=== PATIENT | female | born 2000 | race Caucasian/White ===

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

== ENCOUNTER 2022-03-22 04:14 | Emergency (ER) | payer OTHER, SELFPAY ==
--- NOTE | ~2022-03-22 | CT_ITS ---
EXAMINATION: CT abdomen pelvis wo con DATE: 03/22/2022 05:57 INDICATION: Lower abdominal pain TECHNIQUE: Computed tomography (CT) of the abdomen and pelvis was performed without intravenous contr ast. The dose-length product (DLP) was 270.52 mGy-cm. Automated exposure control and iterative recons truction technique were employed. COMPARISON: None FINDINGS: The lung bases are clear. The heart size is normal. The gallbladder is surgically absent. W ithin the limitations of noncontrast examination, the liver, spleen, pancreas, and adrenal glands are normal. The kidneys are unremarkable. No pathologically enlarged abdominal or pelvic lymph nodes are identified. There is no free intraperitoneal gas or evidence of bowel obstruction. There is a 4.5 cm cyst of the left adnexa. IMPRESSION: 1. No CT correlate for the patient's symptoms. 2. Probable simple cyst of the left ovary. Consider follow-up pelvic ultrasound. Reviewed, dictated and finalized at location A. IMPRESSION: 1. No CT correlate for the patient's symptoms. 2. Probable simple cyst of the left ovary. Consider follow-up pelvic ultrasound .
--- NOTE | 2022-03-22 04:17 | ED.ABDPAIN ---
HPI - Abdominal Pain General Chief Complaint: Abdominal Pain Stated Complaint: PAIN Time Seen by Provider: 03/22/22 04:16 History of Present Illness HPI narrative: 22-year-old female, smoker marijuana user with ADHD, endometriosis status post exploratory laparotomy on contraception presents to the ER with -- left lower quadrant abdominal pain which has progressed to lower abdominal pain. Patient has chronic abdominal pain. Her Abdominal pain flared up last night. -- Nausea without any diarrhea. -- No fever. MD elicited complaint: abdominal pain Pertinent past history: other ( Endometriosis) Onset (ago): hour(s) ( severe for past 8 hours) Pain Consistency: constant Location: LLQ and suprapubic Severity: severe Pain scale (0-10): 9 Quality: cramping Radiation: none Migration to: no migration Exacerbating factors: nothing Relieving factors: nothing Associated symptoms: nausea Treatments prior to arrival: NSAIDs Related Data Date of Last Menstrual Period: 01/20/22 Patient : No Home Medications Medication Instructions Recorded Confirmed L norgest/E estradiol-E estrad 1 ea PO USEASDIRECTD 03/22/22 03/22/22 0.15 mg-30 mcg (84)/10 mcg(7) tabs,3mos ibuprofen 600 mg tablet 600 mg PO Q6H PRN Pain 03/22/22 03/22/22 Allergies Allergy/AdvReac Type Severity Reaction Status Date / Time ivp dye AdvReac Flushing Uncoded 03/22/22 04:33 Review of Systems Review of Systems: All systems reviewed & are unremarkable except as noted in HPI and below Constitutional: Constitutional: Reports as per HPI and Reports no additional constitutional complaints Eyes: Eyes: Reports as per HPI and Reports no additional eye complaints ENT: Reports system reviewed and no additional complaints, except as documented and Reports as per HPI Cardiovascular: Cardiovascular: Reports as per HPI and Reports no additional cardiovascular complaints Respiratory: Respiratory: Reports as per HPI and Reports no additional respiratory complaints Gastrointestinal: Gastrointestinal: Reports as per HPI and Reports no additional gastrointestinal complaints Genitourinary: Genitourinary: Reports no additional female genitourinary complaints and Reports as per HPI Musculoskeletal: Musculoskeletal: Reports no additional musculoskeletal complaints and Reports as per HPI Integumentary/Breasts: Skin/Breast: Reports system reviewed and no additional complaints, except as docu and Reports as per HPI Neurologic: Reports system reviewed and no additional complaints, except as documented and Reports as per HPI Psychiatric: Psychiatric: Reports no additional psychiatric complaints and Reports as per HPI Endocrine: Endocrine: Reports no additional endocrine complaints and Reports as per HPI Hematologic/Lymphatic: Hematologic/Lymphatic: Reports no additional hematologic/lymphatic complaints and Reports as per HPI Allergic/Immunologic: Allergic/Immunologic: Reports no additional allergic/immunologic complaints and Reports as per HPI PMFSH Past Medical History Medical History ADHD Endometriosis Irregular menses Near syncope Surgical History Surgical History H/O exploratory laparotomy H/O foot surgery Social History Social History (Updated 07/03/21 @ 22:29 by Michelle Stockton MD) Smoking status: Current every day smoker Alcohol intake: never Substance use: current Substance use type: marijuana Other substance usage details: uses MJ 2-3 times a day Exam Const: General: healthy appearing and ill appearing Orientation/consciousness: patient oriented x3 Limitations: no limitations HENMT: Head: normal to inspection Ears: external ears normal General nose exam: Normal external nose present Face and sinus: normal facial exam Mouth: Yes Normal oral and palatal mucosa present Eyes: Conjunctivae: conjunctivae normal a
[2022-03-22 04:24] VITALS: BP 140/93; PULSE 108; RESP 20; TEMP 36.6; O2SAT 99
[2022-03-22 04:30] VITALS: BP 111/75; PULSE 89; RESP 18; O2SAT 96
[2022-03-22] MEDS: ONDANSETRON INJ 4 MG/2 ML VIAL IV PUSH (04:57)
[2022-03-22] MEDS: LACTATED RINGERS 1,000 ML 999 ML IV CONT (04:57)
[2022-03-22] MEDS: HYDROmorphone HCL INJ (*CRX) 2 MG/ML VIAL 0.5 MG IV PUSH (04:58)
[2022-03-22 05:03] LABS: Basophils Percent Auto 1.1 % (0.0-1.0); Eosinophils Percent Auto 2.2 % (1.0-6.0); Hematocrit 39.3 % (35.0-49.0); Hemoglobin 13.6 g/dL (12.0-15.0); Immature Granulocyte Absolute 0.02 K/mm3 (0.00-0.00); Immature Granulocyte Percent A 0.2 % (0.0-0.0); Lymphocytes Absolute Auto 4.31 K/mm3 (1.10-4.50); Lymphocytes Percent Auto 47.2 % (18.0-42.0); Mean Corpuscular HGB Conc 34.6 g/dL (32.0-36.0); Mean Corpuscular Hemoglobin 31.1 pg (27.0-31.0); Mean Corpuscular Volume 89.7 fL (78.0-102.0); Monocytes Absolute Auto 0.85 K/mm3 (0.10-0.90); Monocytes Percent Auto 9.3 % (2.0-11.0); Neutrophils Absolute Auto 3.7 K/mm3 (1.7-7.2); Platelet Count Result 227 K/mm3 (150-420); Red Blood Count 4.38 M/mm3 (4.20-5.40); Red Cell Distribution Width 11.9 % (11.6-14.4); White Blood Count 9.1 K/mm3 (4.8-10.8)
[2022-03-22 05:05] LABS: Add Urine Microscopic? NO; Appearance Urine Clear (Clear); Bilirubin Urine Negative (Negative); Blood Urine Negative (Negative); Color Urine Light Yellow (Yellow); Glucose Urine UA Negative (Negative); Ketones Urine Negative (Negative); Leukocyte Esterase Ur Negative (Negative); Nitrate Urine Negative (Negative); Protein Urine Negative (Negative); Urobilinogen Urine 0.2 mg/dL (0.2-1.0); pH Urine 7.5 (5.0-8.0)
[2022-03-22 05:07] VITALS: BP 112/68; PULSE 78; RESP 17; O2SAT 99
[2022-03-22 05:09] LABS: Pregnancy On Board Control Positive; Urine Pregnancy Test Negative
[2022-03-22 05:24] LABS: Lactic Acid Reflex 1.6 mmol/L (0.4-2.0)
[2022-03-22 05:31] LABS: Alanine Aminotransferase 20 U/L (14-59); Albumin Level 3.6 g/dL (3.4-5.0); Alkaline Phosphatase 87 U/L (46-116); Anion Gap 10 mmol/L (8-16); Aspartate Amino Transferase 11 U/L (15-37); Bilirubin,Total 0.2 mg/dL (0.00-1.00); Blood Urea Nitrogen 9 mg/dL (7-18); Calcium 8.7 mg/dL (8.5-10.1); Carbon Dioxide 23 mmol/L (21-32); Chloride 107 mmol/L (98-108); Estimated CRCL calculation 77 ml/min; Estimated Glomerular Filt Rate > 60; Glucose 98 mg/dL (70-99); Lipase 100 U/L (73-393); Osmolality Calculated 288 mOsm/kg (285-295); Potassium 3.7 mmol/L (3.5-5.1); Sodium 140 mmol/L (136-145); Total Protein 7.2 g/dL (6.4-8.2)
[2022-03-22 05:58] VITALS: BP 107/64; PULSE 114; RESP 16; O2SAT 98
[2022-03-22 07:11] VITALS: BP 107/58; PULSE 74; RESP 16; TEMP 36.3; O2SAT 100
== END 2022-03-22 07:16 | disposition home or self-care (01) ==
PROVIDERS: Emergency Provider Internal Medicine Critical Care Medicine; PCP Family Medicine
DX: R10.9 Unspecified abdominal pain (principal)
CPT/HCPCS: 36415; 74176; 80053; 81003; 81025; 83605; 83690; 85025; 85610; 96361; 96374; 96375; 99284; J1170; J2405; J7120

== ENCOUNTER 2022-03-27 19:13 | Emergency (ER) | payer OTHER, SELFPAY ==
[2022-03-27 19:31] VITALS: BP 121/74; PULSE 110; RESP 16; TEMP 36.6; O2SAT 99
--- NOTE | 2022-03-27 20:02 | ED.URI ---
HPI - URI/Sore Throat General Chief Complaint: Upper Respiratory Infection Stated Complaint: body aches, congestion, cough,fever Source: patient Mode of arrival: ambulatory Limitations: no limitations History of Present Illness HPI Narrative: this is a 22-year-old female that presents with a 3 day history of body aches low-grade fevers nonproductive cough no shortness of breath no nausea vomiting no abdominal pain no dysuria no flank pain, patient is not having any shortness of breath or chest pain has been having low-grade fevers for last 2 to 3 days. MD elicited complaint: fever, nasal congestion and other ( body ache) Onset (ago): day(s) Consistency: constant Severity: mild Description of mucous: clear Able to tolerate fluids by mouth: Yes Exacerbating factors: nothing Related Data Home Medications Medication Instructions Recorded Confirmed L norgest/E estradiol-E estrad 1 ea PO USEASDIRECTD 03/22/22 03/27/22 0.15 mg-30 mcg (84)/10 mcg(7) tabs,3mos Allergies Allergy/AdvReac Type Severity Reaction Status Date / Time ivp dye AdvReac Flushing Uncoded 03/27/22 19:29 Review of Systems Review of Systems: All systems reviewed & are unremarkable except as noted in HPI and below PMFSH Past Medical History Medical History ADHD Endometriosis Irregular menses Near syncope Surgical History Surgical History H/O exploratory laparotomy H/O foot surgery Social History Social History Smoking status: Current every day smoker Alcohol intake: never Substance use: current Substance use type: marijuana Other substance usage details: uses MJ 2-3 times a day Exam Const: General: healthy appearing HENMT: Head: normal to inspection Face and sinus: normal facial exam Eyes: Conjunctivae: conjunctivae normal Pupils: Equal, round and reactive pupils present Neck: Neck: normal visual inspection Chest: Chest palpation & inspection: normal inspection of the chest Resp: Effort & Inspection: normal respiratory effort Auscultation: clear to auscultation bilaterally Cardio: Rate: regular rate Rhythm: regular rhythm GI: GI Palp: Yes Soft to palpation : General: Yes bladder normal to palpation Back/Spine/Pelvis: Back: no CVA tenderness Skin: General skin exam: normal color Rashes: no rashes Wounds: no wounds Neuro: General: patient oriented x3 Cranial nerves: Yes Nystagmus not present Speech: normal speech Gait exam (Neuro): Normal gait present Extrem: General: normal to inspection Psych: Mental Status: mental status grossly normal Affect: normal affect Attitude: cooperative Course Course Emergency Course: Patient received IV fluids, g of Tylenol and patient had an influenza and COVID testing. Vital Signs Vital signs: Vital Signs Temperature 36.6 C 03/27/22 19:31 Pulse Rate 110 H 03/27/22 19:31 Respiratory Rate 16 03/27/22 19:31 Blood Pressure 121/74 03/27/22 19:31 Pulse Oximetry 99 03/27/22 19:31 Oxygen Delivery Room Air 03/27/22 19:31 Temperature 36.6 C 03/27/22 19:31 Pulse Rate 110 H 03/27/22 19:31 Respiratory Rate 16 03/27/22 19:31 Blood Pressure 121/74 03/27/22 19:31 Pulse Oximetry 99 03/27/22 19:31 Oxygen Delivery Room Air 03/27/22 19:31 MDM - URI/Sore Throat Lab Data Labs: Lab Results 03/27/22 Range/Units 19:29 Influenza A (RT-PCR) Pending Influenza B (RT-PCR) Pending SARS-CoV-2 RNA (RT-PCR) Pending Critical Care Time Critical Care Time Critical Care Time: No Discharge Plan Discharge Clinical Impression: COVID-19 Patient Disposition: Home, Self-Care Condition: Stable Instructions: Antibiotic Form, COVID-19 (Coronavirus Disease 2019) (ED) Additional Instructions: Take medicine as prescribed and follow-up pr
[2022-03-27 20:07] LABS: Influenza A QL RT-PCR Negative (Negative); Influenza B QL RT-PCR Negative (Negative); SARS-CoV-2 RNA PCR Positive (Negative)
[2022-03-27] MEDS: ACETAMINOPHEN 500 MG TABLET 1000 MG PO (20:14)
[2022-03-27] MEDS: SODIUM CHLORIDE 0.9% IV 500 ML 999 ML IV CONT (20:15)
[2022-03-27 21:00] VITALS: BP 118/75; PULSE 103; RESP 16; O2SAT 98
== END 2022-03-27 21:02 | disposition home or self-care (01) ==
PROVIDERS: Emergency Provider Emergency Medicine; PCP Family Medicine
DX: U07.1 COVID-19 (principal)
CPT/HCPCS: 87502; 96360; 99283; C9803; J7040; U0003; U0005

== ENCOUNTER 2025-04-02 12:27 | Emergency (ER) | payer OTHER, SELFPAY ==
--- NOTE | ~2025-04-02 | CT_ITS ---
CLINICAL INDICATION: Right flank pain COMPARISON: 03/22/2022. TECHNIQUE: Multiple contiguous axial images of the abdomen and pelvis were performed without the admi nistration of intravenous contrast The dose-length product (DLP) was 182.96 mGy-cm. Automated exposure control and iterative reconstruction technique were employed. FINDINGS/OBSERVATIONS: Visualized lower thorax: The bilateral lung bases are clear. The heart is of normal size, without pericardial effusion. Liver: The liver demonstrates homogeneous attenuation and is borderline enlarged measuring 19 cm in longitud inal dimension. Gallbladder and biliary system: The gallbladder is surgically absent. Pancreas: Limited evaluation of the pancreas secondary to the lack of intravenous contrast. Spleen: The spleen demonstrates homogeneous attenuation and is not enlarged. Kidneys: Global enlargement of the right kidney with moderate hydroureteronephrosis extending to the distal ri ght ureter where a 3 mm calculus is identified. The left kidney is unremarkable. Adrenal glands: Unremarkable. Gastrointestinal tract: Trace fecal stasis within the colon. Appendix: The appendix is not definitively visualized. However, no pericecal inflammatory change is identified suggest the presence of acute appendicitis. Vasculature: Unremarkable. Lymph nodes: Limited evaluation without intravenous contrast. Pelvic structures: The bladder is decompressed, limiting its evaluation. The uterus is anteverted and anteflexed. Body wall and musculoskeletal: No significant degenerative disease within the lower thoracic or lumbosacral spine. IMPRESSION: Right-sided hydroureteronephrosis secondary to a 3 mm calculus in the distal right ureter. Reviewed, dictated and finalized at location A. IMPRESSION: Right-sided hydroureteronephrosis secondary to a 3 mm calculus in the distal ri ght ureter.
--- OUTSIDE RECORDS SUMMARY | 2025-04-02 12:30 | XMS_ITS | Clinical Summary ---
Author Organization [facility] Address [address] [place] [id number] Care Team Providers Care Panel Machine Operator Name Role Phone Nba Jain MD Primary Care Provider Allergies Active Allergy Reactions Criticality Noted Date Comments Iodinated Contrast Media Sweating Low 07/30/2021 Lactase Diarrhea Low 06/21/2020 Medications cetirizine (ZyrTEC) 10 mg tablet Take 10 mg by mouth daily Active etonogestreL (NEXPLANON) 68 mg implant Inject under the skin Active traMADoL (ULTRAM) 50 mg tablet as needed 0 07/02/2021 Active ibuprofen (ADVIL,MOTRIN) 600 mg tablet Take 600 mg by mouth daily Active fludrocortisone 0.1 mg tablet Take 1 tablet (0.1 mg total) by mouth daily 30 tablet 11 08/27/2021 Active Active Problems Problem Noted Date Diagnosed Date Palpitations 07/30/2021 Inappropriate sinus tachycardia 07/30/2021 Syncope and collapse 07/30/2021 Social History Tobacco Use Types Packs/Day Years Used Date Smoking Tobacco: Every Day Personal Safety Answer Date Recorded Getting School Help Needed Not on file 11/19 Comments Unknown Sex and Gender Information Value Date Recorded Sex Assigned at Not on file Legal Sex Female 6:06 PM 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 Gender Identity Not on file Sexual Orientation Not on file Obstetrics History Last Filed Vital Signs Vital Sign Reading Time Taken Comments Blood Pressure 117/85 08/27/2021 3:14 PM ORACLE 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 Pulse 118 08/27/2021 3:14 PM ORACLE 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 Temperature - - Respiratory Rate - - Oxygen Saturation 98% 08/27/2021 3:14 PM ORACLE 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 Inhaled Oxygen Concentration - - Weight 54 kg (119 lb 1.9 oz) 08/27/2021 3:14 PM ORACLE 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 Height 154.9 cm (5' 1) 08/27/2021 3:14 PM ORACLE 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 Body Mass Index 22.51 08/27/2021 3:14 PM ORACLE 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 Plan of Treatment Not on file Insurance Care Teams Panel Machine Operator Relationship Specialty Start Date End Date Nba Jain MD PCP - General Family Medicine 07/30/21
--- OUTSIDE RECORDS SUMMARY | 2025-04-02 12:30 | XMS_ITS | Encounter Summary ---
Author Organization [facility] Address [address] [place] [id number] Care Team Providers Care Lumber Carrier Operator Name Role Phone Naldo Sorensen MD Primary Care Provider [phone] Kimberly Dominguez Primary Care Provider [phone] Liane English MD Primary Care Provider [phone] Encounter Details Date Type Department Care Team (Late st Contact Info) Description 03/05/2019 Abstract SFL CONVERSION [address] [place] [address] , Generic Conversion, Social History Tobacco Use Types Packs/Day Years Used Date Smoking Tobacco: Never Assessed Comments Unknown Sex and Gender Information Value Date Recorded Sex Assigned at Female 11/14/2024 1:55 PM FILTER FILLER Legal Sex Female 9:14 PM CDT Gender Identity Not on file Sexual Orientation Straight 09/04/2019 12 :19 AM FILTER FILLER documented as of this encounter Plan of Treatment Not on file documented as of this encounter Visit Diagnoses Not on filedocumented in this encounter Additional Health Concerns Infection Onset Date Last Indicated Resolved Time COVID-19 Rule Out 04/10/2020 04/10/2020 04/11/2020 6:29 PM CDT COVID-19 Rule Out 03/08/2024 03/08/2024 03/09/2024 1:24 PM CDT documented as of this encounter Care Teams Lumber Carrier Operator Relationship Specialty Start Date End Date Naldo Sorensen MD [address] [place] [id number] PCP - General FAMILY PRACTICE 05/24/19 02/28/24 Kimberly Dominguez APNP [address] [place] [address] PCP - General NURSE PRACTITIONER 02/29/24 11/13/24 Liane English MD [address] [place] [address] PCP - General FAMILY PRACTICE 11/14/24 documented as of this encounter
--- OUTSIDE RECORDS SUMMARY | 2025-04-02 12:30 | XMS_ITS | Clinical Summary ---
Author Organization [facility] Address [facility] [place] [address] Care Team Providers Care Assistant Commissioner Name Role Phone Liane English MD Primary Care Provider [phone] Allergies Active Allergy Reactions Criticality Noted Date Comments Tilactase Diarrhea 06/21/2020 Medications etonogestrel (NEXPLANON) 68 MG SC implant Active cetirizine 10 MG tablet Take 10 mg by mouth daily. Active fluconazole 150 MG tablet Take 150 mg by mouth. 04/10/2020 Active Family History Medical History Relation Comments Diabetes Maternal Aunt Kidney Disease Maternal Grandmother Diabetes Maternal Uncle Cancer Paternal Grandmother Relation Status Comments Maternal Aunt Maternal Grandmother Maternal Uncle Paternal Grandmother Social History Tobacco Use Types Packs/Day Years Used Date Smoking Tobacco: Every Day Smokeless Tobacco: Never Alcohol Use Standard Drinks/Week Comments No 0 (1 standard drink = 0.6 oz pur e alcohol) AUDIT-C Answer Date Recorded Frequency of Alcohol Consumption Never 09/04/2019 Average Number of Drinks Not on file 019 Frequency of Binge Drinking Not on file 04/2019 Comments No Sex and Gender Information Value Date Recorded Sex Assigned at Female 11/14/2024 1:55 PM STATISTICAL METHODS PROFESSOR Legal Sex Female 9:14 PM CDT Gender Identity Not on file Sexual Orientation Straight 09/04/2019 12 :19 AM STATISTICAL METHODS PROFESSOR Last Filed Vital Signs Vital Sign Reading Time Taken Comments Blood Pressure 98/71 06/21/2020 4:25 PM CDT Pulse 67 06/21/2020 4:25 PM CDT Temperature 36.5 C (97.7 F) 06/21/2020 3:02 PM CDT Respiratory Rate 18 06/21/2020 4:25 PM CDT Oxygen Saturation 100% 06/21/2020 4:25 PM CDT Inhaled Oxygen Concentration - - Weight 50.3 kg (111 lb) 07/13/2020 11:00 AM CDT Height 154.9 cm (5' 1) 06/21/2020 3:02 PM CDT Body Mass Index 20.97 06/21/2020 3:02 PM CDT Plan of Treatment Health Maintenance Due Date Last Done Comments Cervical Cancer Screening Pap Smear (Age 21 to 29) Every 3 Years 2002 Cervical Cancer Screening 2002 Annual Physical 2005 Meningococcal B Vaccine (1 of 2 - Standard) 2018 Hepatitis C 02/01/2020 Pneumococcal Vaccine: Pediatrics (0 to 5 Years) and At-Risk Patients (6 to 49 Years) (1 of 2 - PCV) 2021 2002, 2002 DTaP, Tdap and Td Vaccines (7 - Td or Tdap) 02/22/2023 02/22/2013, 05/19/2006, 07/17/2003, Additional history exists COVID-19 Vaccine ( - season) 2024 Hepatitis B Vaccines Completed 07/17/2003, 2002, 2002 HPV Vaccines Completed 08/23/2013, 03/29, 02/22/2013 Meningococcal Vaccine Completed 05/26/2018, 013 Chlamydia Screening Females ages 16-24 Discontinued 01/02/2022, 03/23/2020 RSV Immunizations Under 20 Months Aged Out No longer eligible based on patient's age to complete this topic Procedures Procedure Name Priority Date/Time Associated Diagnosis Comments CHLAMYDIA GC RNA Routine 01/02/2022 3:00 PM CDT from Last 3 Months or Most Recently Relevant to Health Maintenance Results * CHLAMYDIA GC RNA (01/02/2022 3:00 PM CDT) SPECIMEN CERVIX 01/03/2022 12:13 PM CDT [facility] CHLAMYDIA RNA TMA NEGATIVE NEGATIVE 022 2:17 PM CDT [facility] Comment:PERFORMED BY NUCLEIC ACID AMPLIFICATION N.GONORRHOEAE RNA TMA NEGATIVE NEGATIVE 01/06/2022 2:17 PM CDT [facility] Comment:PERFORMED BY NUCLEIC ACID AMPLIFICATION CERVIX UTERI STRUCTURE / Unknown 01/02/2022 3:00 PM CDT Kirit Andrews MD MICROBIOLOGY - GENERAL ORDERA BLES Final Result [facility] [address] [place] [address], [facility] [address] [place] [address], [id number] from Last 3 Months or Most Recently Relevant to Health Maintenance Insurance [employer] Care Teams Assistant Commissioner Relationship Specialty Start Date End Date Liane English MD [address] [place], [place] [id number] PCP - General FAMILY PRACTICE 11/14/24
--- OUTSIDE RECORDS SUMMARY | 2025-04-02 12:30 | XMS_ITS | Encounter Summary ---
Author Organization [facility] Address Formerly [facility] [place] [address] Care Team Providers Care Swedish Masseuse Name Role Phone Naldo Sorensen MD Primary Care Provider [phone] Kimberly Dominguez Primary Care Provider [phone] Liane English MD Primary Care Provider [phone] Encounter Details Date Type Department Care Team (Late st Contact Info) Description 12/12/2017 Abstract SJS CONVERSION [address] [place] [address] , Generic MD Sunita Social History Tobacco Use Types Packs/Day Years Used Date Smoking Tobacco: Never Assessed Comments Unknown Sex and Gender Information Value Date Recorded Sex Assigned at Female 11/14/2024 1:55 PM CHURNER Legal Sex Female 9:14 PM CDT Gender Identity Not on file Sexual Orientation Straight 09/04/2019 12 :19 AM CHURNER documented as of this encounter Plan of Treatment Not on file documented as of this encounter Visit Diagnoses Not on filedocumented in this encounter Additional Health Concerns Infection Onset Date Last Indicated Resolved Time COVID-19 Rule Out 04/10/2020 04/10/2020 04/11/2020 6:29 PM CDT COVID-19 Rule Out 03/08/2024 03/08/2024 03/09/2024 1:24 PM CDT documented as of this encounter Care Teams Swedish Masseuse Relationship Specialty Start Date End Date Naldo Sorensen MD [address] [place] [id number] PCP - General FAMILY PRACTICE 05/24/19 02/28/24 Kimberly Dominguez APNP [address] [place] [address] PCP - General NURSE PRACTITIONER 02/29/24 11/13/24 Liane English MD [address] [place] [address] PCP - General FAMILY PRACTICE 11/14/24 documented as of this encounter
--- OUTSIDE RECORDS SUMMARY | 2025-04-02 12:30 | XMS_ITS ---
Author Organization Unknown Address [address] [place] [phone] Phone Care Team Providers Care Websphere Portal Developer Name Role Phone IRVING MINA Attending Unavailable Immunization Immunization Date Status Additional Notes Code Code System MMR 07/17/2003 Completed 03 CVX MMR 05/19/2006 Completed 03 CVX Hep B, adolescent or pediatric 07/17/2003 Completed 08 CVX IPV 2002 Completed 10 CVX IPV 2002 Completed 10 CVX IPV 2002 Completed 10 CVX IPV 05/19/2006 Completed 10 CVX Hib, unspecified formulation 07/17/2003 Completed 17 CVX DTaP 2002 Completed 20 CVX DTaP 2002 Completed 20 CVX DTaP 2002 Completed 20 CVX DTaP 07/17/2003 Completed 20 CVX DTaP 05/19/2006 Completed 20 CVX varicella 07/17/2003 Completed 21 CVX varicella 02/22/2013 Completed 21 CVX Hib-Hep B 2002 Completed 51 CVX Hib-Hep B 2002 Completed 51 CVX HPV, quadrivalent 02/22/2013 Completed 62 C VX HPV, quadrivalent 04/19/2013 Completed 62 C VX HPV, quadrivalent 08/23/2013 Completed 62 C VX Hep A, ped/adol, 2 dose 02/22/2013 Completed 83 CVX Hep A, ped/adol, 2 dose 08/23/2013 Completed 83 CVX pneumococcal conjugate PCV 7 2002 Completed 100 CVX pneumococcal conjugate PCV 7 2002 Completed 100 CVX meningococcal MCV4P 02/22/2013 Completed 114 CVX meningococcal MCV4P 05/26/2018 Completed 114 CVX Tdap 02/22/2013 Completed 115 CVX Influenza, live, quadrivalen t, intranasal 08/23/2013 Completed 149 CVX Influenza, live, quadrivalen t, intranasal 09/06/2014 Completed 149 CVX Influenza, split virus, quadrivalent, PF 07/18/2015 Completed 150 CVX Social History Type Status Start Date End Date Code Code Syst em Smoking History Current every day smoker [id number] SNOMED CT Sex Female Hospital Discharge Instructions Should you have any questions prior to discharge, please contact a member of your healthcare team. If you have left the hospital and have any questions, please contact your primary care physician. Reason For Referral No Data Found Plan of Treatment US Pelvis/Transvaginal (51928) 04/16/20 22 Encounters Encounter Diagnosis Start Date Code Code Sys tem 07/29/2023 [id number] SNOMED-CT Personal Care Team Section Performer Name Performer Role Active Date Inactive LEOPOLDO Santizo PCP - Primary care physician 2021-07-03
--- OUTSIDE RECORDS SUMMARY | 2025-04-02 12:30 | XMS_ITS | Referral Summary ---
Author Organization [facility] Address [address] [place] [phone] Care Team Providers Care Airline Reservation Agent Name Role Phone Nba Jain MD Primary [...] on file Legal Sex Female 6:06 PM CANDY CATCHER Gender Identity Not on file Sexual Orientation Not on file Last Filed Vital Signs Vital Sign Reading Time Taken Comments Blood Pressure 117/85 08/27/2021 3:14 PM CANDY CATCHER Pulse 118 08/27/2021 3:14 PM CANDY CATCHER Temperature - - Respiratory Rate - - Oxygen Saturation 98% 08/27/2021 3:14 PM CANDY CATCHER Inhaled Oxygen Concentration - - Weight 54 kg (119 lb 1.9 oz) 08/27/2021 3:14 PM CANDY CATCHER Height 154.9 cm (5' 1) 08/27/2021 3:14 PM CANDY CATCHER Body Mass Index 22.51 08/27/2021 3:14 PM CANDY CATCHER Plan of Treatment Not on file Insurance Care Teams Airline Reservation Agent Relationship Specialty Start Date End Date Nba Jain MD PCP - General Family Medicine 07/30/21
--- OUTSIDE RECORDS SUMMARY | 2025-04-02 12:31 | XMS_ITS ---
Author Organization Unknown Address [address] [place] [phone] Phone Care Team Providers Care Scuba Dive Training Instructor Name Role Phone IRVING MINA Attending Unavailable [...] em Smoking History Current every day smoker [id number] SNOMED CT Sex Female Hospital Discharge Instructions Should you have any questions prior to discharge, please contact a member of your healthcare team. If you have left the hospital and have any questions, please contact your primary care physician. Reason For Referral No Data Found Plan of Treatment US Pelvis/Transvaginal ([id number]) 04/16/20 22 Encounters Encounter Diagnosis Start Date Code Code Sys tem 07/03/2023 [id number] SNOMED-CT Personal Care Team Section Performer Name Performer Role Active Date Inactive LEOPOLDO Santizo PCP - Primary care physician 2021-07-03
[2025-04-02 12:36] VITALS: BP 139/105; PULSE 76; RESP 20; TEMP 36.6; O2SAT 100
--- NOTE | 2025-04-02 12:41 | ED.ABDPAIN ---
HPI - Abdominal Pain General Chief Complaint: Urogenital-Female Stated Complaint: right flank pain Time Seen by Provider: 04/02/25 12:38 Source: patient and family Mode of arrival: ambulatory Limitations: no limitations History of Present Illness HPI narrative: Patient is a 25-year-old female with no history of kidney stones here with right flank pain going from the right lower back to the right flank to the groin anteriorly. She is just starting her menstrual cycle and noted blood in the urine as well. Pain started today. This was acute pain. MD elicited complaint: abdominal pain ( right lower quadrant), flank pain ( right) and other ( Right lower back) Pertinent past history: other ( endometriosis) Onset (ago): day(s) ( 1) Pain Consistency: constant Location: RLQ and R flank Severity: severe Pain scale (0-10): 8 Quality: cramping and sharp Radiation: RLQ, R flank and back ( right) Migration to: other ( right groin) Exacerbating factors: movement Relieving factors: movement Context: confirms other ( patient has right lower back to the right quadrant and flank pain which radiates to the groin for the past day) Associated symptoms: nausea, vomiting and hematuria Treatments prior to arrival: NSAIDs ( Tylenol) Related Data Home Medications ?Medication ?Instructions ?Recorded ?Confirmed ?Last Taken ?Type L norgest/E estradiol-E estrad 1 ea PO USEASDIRECTD 03/22/22 03/27/22 Unknown History 0.15 mg-30 mcg (84)/10 mcg(7) tabs,3mos Allergies Allergy/AdvReac Type Severity Reaction Status Date / Time ivp dye AdvReac Flushing Uncoded 04/02/25 12:29 Review of Systems Review of Systems: All systems reviewed & are unremarkable except as noted in HPI and below Constitutional: Constitutional: Reports no additional constitutional complaints Eyes: Eyes: Reports no additional eye complaints ENT: Reports system reviewed and no additional complaints, except as documented Cardiovascular: Cardiovascular: Reports no additional cardiovascular complaints Respiratory: Respiratory: Reports no additional respiratory complaints Gastrointestinal: Gastrointestinal: Reports no additional gastrointestinal complaints Genitourinary: Genitourinary: Reports no additional female genitourinary complaints Musculoskeletal: Musculoskeletal: Reports no additional musculoskeletal complaints Integumentary/Breasts: Skin/Breast: Reports system reviewed and no additional complaints, except as docu Neurologic: Reports system reviewed and no additional complaints, except as documented Psychiatric: Psychiatric: Reports no additional psychiatric complaints Endocrine: Endocrine: Reports no additional endocrine complaints Hematologic/Lymphatic: Hematologic/Lymphatic: Reports no additional hematologic/lymphatic complaints Allergic/Immunologic: Allergic/Immunologic: Reports no additional allergic/immunologic complaints PMFSH Past Medical History Medical History Irregular menses Near syncope ADHD Endometriosis Surgical History Surgical History H/O exploratory laparotomy H/O foot surgery Social History Social History Smoking status: Current every day smoker Alcohol intake: never Substance use: current Substance use type: marijuana Other substance usage details: uses MJ 2-3 times a day Living arrangements: with family Exam Const: General: healthy appearing Nutritional Appearance: well nourished Orientation/consciousness: patient oriented x3 Limitations: no limitations Other: patient has acute distress of pain HENMT: Head: normal to inspection Ears: external ears normal Face/Nose/Sinus: Normal external nose present Eyes: Conjunctivae: conjunctivae normal Pupils: Equal, round and reactive pupils present EOM: EOMs intact bilaterally Neck: Neck: normal visual inspection Chest: Chest palpation & inspection: normal inspection of the chest Resp: Effort & Inspection: normal respiratory effort and not labored Auscultation: clear to auscultation bilaterally and no crackles Cardio: Rate: regular rate Rhythm: regular rhythm Heart sounds: Murmur heart sound present GI: Inspection: non-distended GI Palp: Yes Soft to palpation, Yes Tenderness to palpation present (GI) ( right lower quadrant and right flank), Yes Guarding due to palpation present (GI), No Rigid due to palpation, No Hernia present, No Palpable mass present and No Rebound tenderness present Auscultation: normal bowel sounds : General: Yes bladder normal to palpation and Yes CVA tenderness on the right Back/Spine/Pelvis: Back: No no CVA tenderness and CVA tenderness ( right) Skin: General skin exam: normal color Rashes: no rashes Wounds: no wounds Neuro: General: patient oriented x3, moves all extremities, no meningeal signs, no focal motor deficits and CN's II-XI intact bilaterally Extrem: General: normal to inspection Psych: Mental Status: mental status grossly normal Affect: normal affect Attitude: cooperative Course Vital Signs Vital signs: Vital Signs Temperature 36.6 C 04/02/25 12:36 Pulse Rate 76 04/02/25 12:36 Respiratory Rate 04/02/25 12:36 Blood Pressure 139/105 H 04/02/25 12:36 Pulse Oximetry 100 04/02/25 12:36 Oxygen Delivery Room Air 04/02/25 12:36 Temperature 36.6 C 04/02/25 12:36 Pulse Rate 76 04/02/25 12:36 Respiratory Rate 04/02/25 12:36 Blood Pressure 139/105 H 04/02/25 12:36 Pulse Oximetry 100 04/02/25 12:36 Oxygen Delivery Room Air 04/02/25 12:36 MDM - Abdominal Pain MDM Narrative Medical decision making narrative: patient is a 25-year-old female with right lower back to the right flank to the right quadrant and groin radiating pain for the past day. We will do a kidney stone workup at this time. Lab Data Attestation: I reviewed the patient's lab results. 04/02/25 12:50 04/02/25 12:50 Labs: Lab Results 04/02/25 04/02/25 Range/Units 12:43 12:50 WBC 10.0 (4.8-10.8) K/mm3 RBC 4.44 (4.20-5.40) M/mm3 Hgb 13.5 (12.0-15.0) g/dL Hct 39.4 (35.0-49.0) % MCV 88.7 (78.0-102.0) fL MCH 30.4 (27.0-31.0) pg MCHC 34.3 (32-36) g/dL RDW 12.2 (11.6-14.4) % Plt Count 268 (150-420) K/mm3 MPV 9.7 (9.2-11.8) fl Immature Gran % (Auto) 0.4 H (0.0-0.0) % Neut % (Auto) 54.8 (50.0-70.0) % Lymph % (Auto) 33.0 (18.0-42.0) % [place] % (Auto) 8.9 (2.0-11.0) % Eos % (Auto) 2.2 (1.0-6.0) % Baso % (Auto) 0.7 (0.0-1.0) % Lymph # (Auto) 3.30 (1.10-4.50) K/mm3 [place] # (Auto) 0.89 (0.10-0.90) K/mm3 Eos # (Auto) 0.22 (0.02-0.50) K/mm3 Baso # (Auto) 0.07 (0.00-0.10) K/mm3 Abs Immat Gran (auto) 0.04 H (0.00-0.00) K/mm3 Absolute Neuts (auto) 5.49 (1.70-7.20) K/mm3 Absolute Nucleated RBC 0.00 (0.00-0.00) K/mm3 Nucleated RBC % 0.0 (0-0.0) % PT 11.0 (9.50-12.1) Seconds INR 1.0 APTT 28.5 (23.9-30.70) Sec Sodium 139 (137-145) mmol/L Potassium 3.5 (3.4-5.0) mmol/L Chloride 108 H (98-107) mmol/L Carbon Dioxide 22 (22-30) mmol/L Anion Gap 9 (4-12) mmol/L BUN 8 (7-17) mg/dL Creatinine 0.75 (0.7-1.0) mg/dL Estim Creat Clear Calc 73 ml/min Estimated GFR > 60 (59 - ) Glucose 129 H (65-110) mg/dL Calculated Osmolality 288 (285-295) mOsm/kg Lactic Acid 2.9 H (0.4-2.0) mmol/L Calcium 9.4 (8.4-10.2) mg/dL Total Bilirubin 0.4 (0.2-1.3) mg/dL AST 25 (14-36) U/L ALT 22 (6-35) U/L Alkaline Phosphatase 72 (38-126) U/L Total Protein 6.9 (6.3-8.2) g/dL Albumin 4.3 (3.5-5.1) g/dL Lipase 107 (23-300) U/L Urine Color Red A (Yellow) Urine Appearance Cloudy A (Clear) Urine pH 7.0 (5.0-8.0) Ur Specific [place] 1.025 H (1.010-1.020) Urine Protein 1+ H (Negative) Urine Glucose (UA) Negative (Negative) Urine Ketones 1+ H (Negative) Ur Blood (Man) 3+ H (Negative) Urine Nitrate Negative (Negative) Urine Bilirubin Negative (Negative) Urine Urobilinogen 0.2 (0.2-1.0) mg/dL Leukocyte Esterase Rfl Negative (Negative) SHAWANDA/UL Urine RBC >75 H (0-2) /hpf Urine WBC None seen (0-3) /hpf Ur Squamous Epith Cells Rare (Few) /hpf Urine Bacteria None seen (None) /hpf Ur Oval Fat Bodies None (None) /lpf Urine Test Negative Imaging Data Attestation: I personally reviewed and interpreted this imaging study as follows: Radiologist's impression: ITS Impressions Abdomen/Pelvis CT 04/02/25 13:39 IMPRESSION: Right-sided hydroureteronephrosis secondary to a 3 mm calculus in the distal right ureter. Discharge Plan Discharge Clinical Impression: Calculus, ureteral Patient Disposition: Home Condition: Stable Instructions: Kidney Stones (ED) Additional Instructions: Please strain all your urine to try to collect the stone. Make a follow-up appointment with a urologist to review your case. Patient Language: Maori Prescriptions: New hydrocodone-acetaminophen 5-325 mg tablet 1 tablet PO Q8H PRN (Reason: pain) Qty: 20 0RF ondansetron 4 mg tablet,disintegrating 4 mg PO Q8H PRN (Reason: nausea and vomiting) Qty: 20 0RF Medrol 2 mg tablet 2 mg PO BID 3 Days Qty: 6 0RF tamsulosin [Flomax] 0.4 mg capsule 0.4 mg PO DAILY 20 Days Qty: 20 0RF No Action L norgest/e.estradiol-e.estrad 0.15 mg-30 mcg (84)/10 mcg (7) tablets,dose pack,3 month 1 ea PO USEASDIRECTD Rx Instructions: Every 3 months Paxlovid 150 mg x 2- 100 mg tablet See Rx Instructions .ROUTE .COMPLEX Qty: 30 0RF Rx Instructions: take TWO 150 mg tablets of nirmatrelvir with ONE 100 mg tablet of ritonavir twice daily for 5 days Follow-up/Referrals: UNKNOWN,DOCTOR [Non-Staff] - Time of Disposition: 14:04
[2025-04-02] MEDS: KETOROLAC (*BKC) 60 MG/2 ML VIAL IM (12:43)
[2025-04-02] MEDS: ONDANSETRON HCL ODT 4 MG TABLET PO (12:43)
--- NOTE | 2025-04-02 12:43 | PC.NURSE ---
LAB NOTIFIED OF NEW ORDERS
[2025-04-02 12:55] LABS: Hematocrit 39.4 % (35.0-49.0); Hemoglobin 13.5 g/dL (12.0-15.0); Immature Granulocyte Percent A 0.4 % (0.0-0.0); Lymphocytes Absolute Auto 3.30 K/mm3 (1.10-4.50); Mean Corpuscular HGB Conc 34.3 g/dL (32-36); Mean Corpuscular Hemoglobin 30.4 pg (27.0-31.0); Mean Corpuscular Volume 88.7 fL (78.0-102.0); Nucleated Red Blood Cells Absolute Auto 0.00 K/mm3 (0.00-0.00); Nucleated Red Blood Cells Perc 0.0 % (0-0.0); Platelet Count Result 268 K/mm3 (150-420); Red Blood Count 4.44 M/mm3 (4.20-5.40); White Blood Count 10.0 K/mm3 (4.8-10.8)
[2025-04-02 13:00] VITALS: BP 132/87; PULSE 99; RESP 16; O2SAT 100
[2025-04-02 13:06] LABS: Alanine Aminotransferase 22 U/L (6-35); Albumin Level 4.3 g/dL (3.5-5.1); Alkaline Phosphatase 72 U/L (38-126); Anion Gap 9 mmol/L (4-12); Aspartate Amino Transferase 25 U/L (14-36); Bilirubin,Total 0.4 mg/dL (0.2-1.3); Blood Urea Nitrogen 8 mg/dL (7-17); Calcium 9.4 mg/dL (8.4-10.2); Carbon Dioxide 22 mmol/L (22-30); Chloride 108 mmol/L (98-107); Estimated CRCL calculation 73 ml/min; Estimated Glomerular Filt Rate > 60; Glucose 129 mg/dL (65-110); Lipase 107 U/L (23-300); Osmolality Calculated 288 mOsm/kg (285-295); Potassium 3.5 mmol/L (3.4-5.0); Sodium 139 mmol/L (137-145); Total Protein 6.9 g/dL (6.3-8.2)
[2025-04-02 13:06] LABS: Add Urine Microscopic? YES; Glucose Urine UA Negative (Negative); Leukocyte Esterase Ur Negative LEU/UL (Negative); Nitrate Urine Negative (Negative); Specific Grav Ur 1.025 (1.010-1.020)
[2025-04-02 13:09] LABS: INR 1.0; Partial Thromboplastin Time 28.5 Sec (23.9-30.70); Prothrombin Time 11.0 Seconds (9.50-12.1)
[2025-04-02 13:10] LABS: Appearance Urine Cloudy (Clear)
[2025-04-02 13:11] LABS: Pregnancy On Board Control Positive
--- OUTSIDE RECORDS SUMMARY | 2025-04-02 13:12 | XMS_ITS | Referral Summary ---
Author Organization [facility] Address [address] [place] [phone] Care Team Providers Care Sieve Maker Name Role Phone Nba Jain MD Primary [...] on file Legal Sex Female 6:06 PM NEIGHBORHOOD CONSERVATION OFFICER Gender Identity Not on file Sexual Orientation Not on file Last Filed Vital Signs Vital Sign Reading Time Taken Comments Blood Pressure 117/85 08/27/2021 3:14 PM NEIGHBORHOOD CONSERVATION OFFICER Pulse 118 08/27/2021 3:14 PM NEIGHBORHOOD CONSERVATION OFFICER Temperature - - Respiratory Rate - - Oxygen Saturation 98% 08/27/2021 3:14 PM NEIGHBORHOOD CONSERVATION OFFICER Inhaled Oxygen Concentration - - Weight 54 kg (119 lb 1.9 oz) 08/27/2021 3:14 PM NEIGHBORHOOD CONSERVATION OFFICER Height 154.9 cm (5' 1) 08/27/2021 3:14 PM NEIGHBORHOOD CONSERVATION OFFICER Body Mass Index 22.51 08/27/2021 3:14 PM NEIGHBORHOOD CONSERVATION OFFICER Plan of Treatment Not on file Insurance Care Teams Sieve Maker Relationship Specialty Start Date End Date Nba Jain MD PCP - General Family Medicine 07/30/21
--- OUTSIDE RECORDS SUMMARY | 2025-04-02 13:12 | XMS_ITS | Encounter Summary ---
Author Organization [facility] Address [address] [place] [address] Care Team Providers Care Supervisor Modern Languages Name Role Phone Naldo Sorensen MD Primary Care Provider [phone] Kimberly Dominguez Primary Care Provider [phone] Liane English MD Primary Care Provider [phone] Encounter Details Date Type Department Care Team (Late st Contact Info) Description 03/05/2019 Abstract SFL CONVERSION [address] [place] [address] , Generic Conversion, Social History Tobacco Use Types Packs/Day Years Used Date Smoking Tobacco: Never Assessed Comments Unknown Sex and Gender Information Value Date Recorded Sex Assigned at Female 11/14/2024 1:55 PM CREDIT PROFESSIONAL Legal Sex Female 9:14 PM CDT Gender Identity Not on file Sexual Orientation Straight 09/04/2019 12 :19 AM CREDIT PROFESSIONAL documented as of this encounter Plan of Treatment Not on file documented as of this encounter Visit Diagnoses Not on filedocumented in this encounter Additional Health Concerns Infection Onset Date Last Indicated Resolved Time COVID-19 Rule Out 04/10/2020 04/10/2020 04/11/2020 6:29 PM CDT COVID-19 Rule Out 03/08/2024 03/08/2024 03/09/2024 1:24 PM CDT documented as of this encounter Care Teams Supervisor Modern Languages Relationship Specialty Start Date End Date Naldo Sorensen MD [address] [place] [phone] PCP - General FAMILY PRACTICE 05/24/19 02/28/24 Kimberly Dominguez APNP [address] [place] [address] PCP - General NURSE PRACTITIONER 02/29/24 11/13/24 Liane English MD [address] [place] [address] PCP - General FAMILY PRACTICE 11/14/24 documented as of this encounter
--- OUTSIDE RECORDS SUMMARY | 2025-04-02 13:12 | XMS_ITS | Clinical Summary ---
Author Organization [facility] Address [facility] [place] [address] Care Team Providers Care Inspector Finishing Name Role Phone Liane English MD Primary Care Provider [phone] Allergies Active Allergy Reactions Criticality Noted Date [...] Sex Assigned at Female 11/14/2024 1:55 PM MODEL ENGINE MECHANIC Legal Sex Female 9:14 PM CDT Gender Identity Not on file Sexual Orientation Straight 09/04/2019 12 :19 AM MODEL ENGINE MECHANIC Last Filed Vital Signs Vital Sign Reading [...] CDT) SPECIMEN CERVIX 01/03/2022 12:13 PM CDT [facility] CHLAMYDIA RNA TMA NEGATIVE NEGATIVE 022 2:17 PM CDT [facility] Comment:PERFORMED BY NUCLEIC ACID AMPLIFICATION N.GONORRHOEAE RNA TMA NEGATIVE NEGATIVE 01/06/2022 2:17 PM CDT [facility] Comment:PERFORMED BY NUCLEIC ACID AMPLIFICATION CERVIX UTERI STRUCTURE / Unknown 01/02/2022 3:00 PM CDT Kirit Andrews MD MICROBIOLOGY - GENERAL ORDERA BLES Final Result [facility] [address] [place] [address], [facility] [address] [place] [address], [id number] from Last 3 Months or Most Recently Relevant to Health Maintenance Insurance [place] [employer] Care Teams Inspector Finishing Relationship Specialty Start Date End Date Liane English MD [address] [place], [place] [phone] PCP - General FAMILY PRACTICE 11/14/24
--- OUTSIDE RECORDS SUMMARY | 2025-04-02 13:12 | XMS_ITS ---
Author Organization Unknown Address [address] [place] [phone] Phone Care Team Providers Care Insurance Coordinator Name Role Phone IRVING MINA Attending Unavailable [...] em Smoking History Current every day smoker [id number] SNOMED CT Sex Female Hospital Discharge Instructions Should you have any questions prior to discharge, please contact a member of your healthcare team. If you have left the hospital and have any questions, please contact your primary care physician. Reason For Referral No Data Found Plan of Treatment US Pelvis/Transvaginal ([id number]) 04/16/20 22 Encounters Encounter Diagnosis Start Date Code Code Sys tem 07/29/2023 [id number] SNOMED-CT Personal Care Team Section Performer Name Performer Role Active Date Inactive LEOPOLDO Santizo PCP - Primary care physician 2021-07-03
--- OUTSIDE RECORDS SUMMARY | 2025-04-02 13:12 | XMS_ITS | Clinical Summary ---
Author Organization [facility] Address [address] [place] [phone] Care Team Providers Care Instrumentation Engineering Technician Name Role Phone Nba Jain MD Primary [...] on file Legal Sex Female 6:06 PM POWER GENERATION ENGINEER Gender Identity Not on file Sexual Orientation Not on file Obstetrics History Last Filed Vital Signs Vital Sign Reading Time Taken Comments Blood Pressure 117/85 08/27/2021 3:14 PM POWER GENERATION ENGINEER Pulse 118 08/27/2021 3:14 PM POWER GENERATION ENGINEER Temperature - - Respiratory Rate - - Oxygen Saturation 98% 08/27/2021 3:14 PM POWER GENERATION ENGINEER Inhaled Oxygen Concentration - - Weight 54 kg (119 lb 1.9 oz) 08/27/2021 3:14 PM POWER GENERATION ENGINEER Height 154.9 cm (5' 1) 08/27/2021 3:14 PM POWER GENERATION ENGINEER Body Mass Index 22.51 08/27/2021 3:14 PM POWER GENERATION ENGINEER Plan of Treatment Not on file Insurance Care Teams Instrumentation Engineering Technician Relationship Specialty Start Date End Date Nba Jain MD PCP - General Family Medicine 07/30/21
--- OUTSIDE RECORDS SUMMARY | 2025-04-02 13:12 | XMS_ITS | Encounter Summary ---
Author Organization [facility] Address [facility] [place] [address] Care Team Providers Care Weave Room Supervisor Name Role Phone Naldo Sorensen MD Primary Care Provider [phone] Kimberly Dominguez Primary Care Provider [phone] Liane English MD Primary Care Provider [phone] Encounter Details Date Type Department Care Team (Late st Contact Info) Description 12/12/2017 Abstract SJS CONVERSION [address] [place] [address] , Generic MD Sunita Social History Tobacco Use Types Packs/Day Years Used Date Smoking Tobacco: Never Assessed Comments Unknown Sex and Gender Information Value Date Recorded Sex Assigned at Female 11/14/2024 1:55 PM BUSINESS RULES ANALYST Legal Sex Female 9:14 PM CDT Gender Identity Not on file Sexual Orientation Straight 09/04/2019 12 :19 AM BUSINESS RULES ANALYST documented as of this encounter Plan of Treatment Not on file documented as of this encounter Visit Diagnoses Not on filedocumented in this encounter Additional Health Concerns Infection Onset Date Last Indicated Resolved Time COVID-19 Rule Out 04/10/2020 04/10/2020 04/11/2020 6:29 PM CDT COVID-19 Rule Out 03/08/2024 03/08/2024 03/09/2024 1:24 PM CDT documented as of this encounter Care Teams Weave Room Supervisor Relationship Specialty Start Date End Date Naldo Sorensen MD [address] [place] [phone] PCP - General FAMILY PRACTICE 05/24/19 02/28/24 Kimberly Dominguez APNP [address] [place] [address] PCP - General NURSE PRACTITIONER 02/29/24 11/13/24 Liane English MD [address] [place] [address] PCP - General FAMILY PRACTICE 11/14/24 documented as of this encounter
--- OUTSIDE RECORDS SUMMARY | 2025-04-02 13:13 | XMS_ITS ---
Author Organization Unknown Address [address] [place] [phone] Phone Care Team Providers Care Mixed Signal Design Engineer Name Role Phone IRVING MINA Attending Unavailable [...] em Smoking History Current every day smoker [id number] SNOMED CT Sex Female Hospital Discharge Instructions Should you have any questions prior to discharge, please contact a member of your healthcare team. If you have left the hospital and have any questions, please contact your primary care physician. Reason For Referral No Data Found Plan of Treatment US Pelvis/Transvaginal (84058) 04/16/20 22 Encounters Encounter Diagnosis Start Date Code Code Sys tem 07/03/2023 [id number] SNOMED-CT Personal Care Team Section Performer Name Performer Role Active Date Inactive LEOPOLDO Santizo PCP - Primary care physician 2021-07-03
[2025-04-02 13:45] VITALS: BP 122/79; PULSE 62; RESP 16; O2SAT 100
[2025-04-02] MEDS: TAMSULOSIN HCL 0.4 MG CAPSULE PO (14:13)
[2025-04-02] MEDS: HYDROcodone/acetaminophen (*CRX) 5-325 MG TABLET 1 TAB PO (14:13)
[2025-04-02 14:15] VITALS: BP 112/82; PULSE 57; RESP 17; TEMP 36.8; O2SAT 100
== END 2025-04-02 14:15 | disposition home or self-care (01) ==
PROVIDERS: Emergency Provider Emergency Medicine
DX: N20.1 Calculus of ureter (principal); F17.200 Nicotine dependence, unspecified, uncomplicated
CPT/HCPCS: 36415; 74176; 80053; 81001; 81025; 83605; 83690; 85025; 85610; 85730; 96372; 99284; A9270; J1885